=== PATIENT | male | born 1995 | race Caucasian/White ===

== ENCOUNTER 2023-11-07 09:01 | Emergency (ER) | payer BC ==
[~2023-11-07] VITALS: Ht 182.9 cm; Wt 113.4 kg
[2023-11-07 09:20] VITALS: BP_SYST 119; PULSE 70; RESP 18; TEMP 98; O2SAT 94
[2023-11-07] MEDS ORDERED: LIDOCAINE 1% 10 MG/ML, 20 ML MDV INJ ONE (09:30)
[2023-11-07] MEDS ORDERED: DIPHTH,PERTUSS(ACELL),TET VAC 0.5 ML VIAL (Tdap) I.M. ONE (09:30)
[2023-11-07] MEDS ORDERED: BACITRACIN 1 GM OINT TP ONE (09:30)
[2023-11-07] MEDS ORDERED: cefTRIAXone 1 GM in LIDOCAINE 1%, 20 ML MDV 2.1 ML IM ONE (10:45)
[2023-11-07] MEDS ORDERED: TRAM50TA2 PO (10:59)
[2023-11-07] MEDS ORDERED: CEPH-548 PO (10:59)
[2023-11-07] MEDS ORDERED: IBUP-1971 PO (10:59)
[2023-11-07 11:07] VITALS: BP_SYST 119; PULSE 70; RESP 18; TEMP 98; O2SAT 94
== END 2023-11-07 11:06 | disposition home or self-care (01) ==
LOC: SED 09:01
DX: S62.634B Displaced fracture of distal phalanx of right ring finger, initial encounter for open fracture (principal); S67.195A Crushing injury of left ring finger, initial encounter; Z79.899 Other long term (current) drug therapy; W23.0XXA Caught, crushed, jammed, or pinched between moving objects, initial encounter; Y93.89 Activity, other specified; Y92.89 Other specified places as the place of occurrence of the external cause; Y99.8 Other external cause status
CPT/HCPCS: 99284; 73140; 90715; 90471; 29130; 96372; J0696; J2001

== ENCOUNTER 2023-11-10 08:38 | Emergency (ER) | payer BC ==
[~2023-11-10] VITALS: Ht 182.9 cm; Wt 113.4 kg
[~2023-11-10 08:38] MED LIST: CEPH-548 PO; IBUP-1971 PO; TRAM50TA2 PO
[2023-11-10 08:53] VITALS: BP_SYST 122; PULSE 57; RESP 19; TEMP 98.2; O2SAT 100
[2023-11-10] MEDS ORDERED: BACITRACIN 1 GM OINT TP ONE (09:06)
[2023-11-10 09:11] VITALS: BP_SYST 122; PULSE 57; RESP 19; TEMP 98.2; O2SAT 100
== END 2023-11-10 09:13 | disposition home or self-care (01) ==
LOC: SED 08:38
DX: S62.614B Displaced fracture of proximal phalanx of right ring finger, initial encounter for open fracture (principal); Z48.00 Encounter for change or removal of nonsurgical wound dressing; Z79.899 Other long term (current) drug therapy; X58.XXXA Exposure to other specified factors, initial encounter; Y93.89 Activity, other specified; Y92.89 Other specified places as the place of occurrence of the external cause; Y99.8 Other external cause status
CPT/HCPCS: 99282